=== PATIENT | male | born 1960 | race Caucasian/White ===

== ENCOUNTER 2019-11-20 13:34 | Emergency (ER) | payer BC, SELFPAY ==
[2019-11-20 13:46] VITALS: BP 151/81; PULSE 73; RESP 16; TEMP 37.8; O2SAT 99
--- NOTE | 2019-11-20 14:14 | ED.URI ---
HPI - URI/Sore Throat General Chief Complaint: Upper Respiratory Infection Stated Complaint: Sore throat Time Seen by Provider: 11/20/19 14:03 Source: patient and RN notes reviewed Mode of arrival: ambulatory Limitations: no limitations History of Present Illness HPI Narrative: Patient presents today complaining of 4-day history of severe sore throat, nasal congestion, and mild cough. Denies known fever, headache, nausea, vomiting, ear food. He currently rates his pain 7/10, which increases to 10/10 with swallowing. He has been using salt water and ibuprofen with mild relief. Reports multiple sick contacts with his grandchildren, but none with any specific diagnosed illness. He is a non-smoker. No recent antibiotic use. MD elicited complaint: sore throat Related Data Home Medications Medication Instructions Recorded Confirmed amlodipine 5 mg PO DAILY 11/20/19 11/20/19 hydrochlorothiazide 25 mg PO DAILY 11/20/19 11/20/19 Allergies Allergy/AdvReac Type Severity Reaction Status Date / Time No Known Allergies Allergy Verified 11/20/19 14:00 Review of Systems Review of Systems: Narrative: CONSTITUTIONAL: Denies body aches, fever, chills, or sweats. EYES: Denies visual changes, redness, or discharge. ENT: Denies rhinorrhea, or otalgia.+ Sore throat, congestion CARDIOVASCULAR: Denies chest pain, palpitations, or edema. RESPIRATORY: Denies dyspnea.+ Mild cough GASTROINTESTINAL: Denies abdominal pain, nausea, vomiting, or diarrhea. GENITOURINARY: Denies dysuria or hematuria. SKIN: Denies rash, itching, or wounds. MUSCULOSKELETAL: Denies back pain, joint pain, or myalgia. NEUROLOGIC: Denies headache, numbness, tingling, or weakness. PSYCH: Denies depression or anxiety. PMFSH Comments At time of signature, I have reviewed and agree with nursing past medical, surgical, social and family history unless otherwise noted. Please see nursing chart for further information. There is no relevant family history pertinent to the presenting complaint Exam Narrative: Exam Narrative: GENERAL: Mildly ill-appearing, well-nourished, and in no acute distress. HEAD: Normocephalic, atraumatic. EYES: EOMI. No redness or drainage. Conjunctivae normal. ENT: Mucous membranes pink and moist. Nares clear. No rhinorrhea. TMs normal bilaterally. Throat severely erythematous with mild edema. No exudate. Uvula midline. NECK: Normal AROM. Supple. Bilateral anterior cervical chain lymphadenopathy. CHEST: No respiratory distress. Clear to auscultation. HEART: Regular rate and rhythm. No murmur appreciated. Normal peripheral pulses. EXTREMITIES: Normal range of motion. No edema. SKIN: Warm, dry, no rash. NEURO: No focal deficits. Alert and oriented x3. Gait steady. PSYCH: Normal affect. No signs of depression or anxiety. Course Vital Signs Vital signs: Vital Signs Temperature 100.0 F H 11/20/19 13:46 Pulse Rate 73 11/20/19 13:46 Respiratory Rate 16 11/20/19 13:46 Blood Pressure 151/81 H 11/20/19 13:46 Pulse Oximetry 99 11/20/19 13:46 Temperature 100.0 F H 11/20/19 13:46 Pulse Rate 73 11/20/19 13:46 Respiratory Rate 16 11/20/19 13:46 Blood Pressure 151/81 H 11/20/19 13:46 Pulse Oximetry 99 11/20/19 13:46 Reviewed. Pt has been instructed to follow up with his PCP regarding his elevated blood pressure today. MDM - URI/Sore Throat Differential Diagnosis Differential diagnosis: Likely upper respiratory infection, otitis media, sinusitis, viral infection, pharyngitis and other (Strep throat) Lab Data Attestation: I reviewed the patient's lab results. Lab results narrative: Rapid strep positive Critical Care Time Critical Care Time Critical Care Time: No Discharge Plan Discharge Clinical Impression: Strep throat Patient Disposition: Home, Self-Care Condition: Stable Instructions: Strep Throat (DC) Additional Instructions: Your rapid strep screen is positive today. Please take the mahi
== END 2019-11-20 14:19 | disposition home or self-care (01) ==
PROVIDERS: Emergency Provider Nurse Practitioner
DX: J02.0 Streptococcal pharyngitis (principal); I10 Essential (primary) hypertension
CPT/HCPCS: 87880; 99203; G0463

== ENCOUNTER 2022-06-28 15:23 | Emergency (ER) | payer BC, SELFPAY ==
[2022-06-28 15:28] VITALS: BP 138/80; PULSE 56; RESP 20; TEMP 36.9; O2SAT 99
--- NOTE | 2022-06-28 15:36 | ED.EAR ---
HPI - Ear Problem General Chief complaint: Ear Stated complaint: ear pain Time Seen by Provider: 06/28/22 15:36 Source: patient and RN notes reviewed History of Present Illness HPI Narrative: Patient is a 62-year-old male who presents the urgent care with complaints of left ear pain that started yesterday. Patient states that he had some pain a couple weeks ago and it seemed to improve on its own. Patient states that the pain is worsened today. Denies any use of [id number] medication for his pain the patient has been sticking Q-tips in his ears. No other acute complaints. No acute distress noted. Patient aware of the plan of care. Some parts of this dictation were generated by voice recognition software and may contain typographical and/or grammatical inaccuracies. Related Data Home Medications Medication Instructions Recorded Confirmed amlodipine 5 mg tablet 5 mg PO DAILY 11/20/19 06/28/22 hydrochlorothiazide 25 mg tablet 25 mg PO DAILY 11/20/19 06/28/22 olmesartan 40 mg tablet 40 mg PO DAILY 06/28/22 06/28/22 Allergies Allergy/AdvReac Type Severity Reaction Status Date / Time No Known Allergies Allergy Verified 06/28/22 15:47 Review of Systems Review of Systems: CONSTITUTIONAL: Denies fever, chills, or sweats. EYES: Denies visual changes, redness, or discharge. ENT: Denies rhinorrhea, congestion, sore throat. Reports of left otalgia CARDIOVASCULAR: Denies chest pain, palpitations, or edema. RESPIRATORY: Denies cough or dyspnea. GASTROINTESTINAL: Denies abdominal pain, nausea, vomiting, or diarrhea. GENITOURINARY: Denies dysuria or hematuria. SKIN: Denies rash or itching. MUSCULOSKELETAL: Denies back pain, joint pain, or myalgia. NEUROLOGIC: Denies headache, numbness, or weakness. All other systems reviewed are negative, except as documented in HPI. PMFSH Comments At the time of my signature, I reviewed and agree with the nursing past medical, surgical, social, and family history. There is no relevant family history pertinent to the patient complaint. Exam Narrative: GENERAL: This is a well-nourished, well-developed patient, in no apparent distress. HEAD: normocephalic, atraumatic. EYES: PERRL. Sclera clear/white. Vision is grossly intact. EARS: External ears normal, auditory canals clear and without drainage, mild bulging to the left TM with surrounding erythema and effusion. Right TM normal without perforation. Hearing grossly intact. NOSE: External nose normal with no obvious nasal discharge, nares without redness, no rhinorrhea. THROAT: Mucous membranes moist NECK: Neck supple SKIN: warm, intact with no suspicious lesions or rash, good texture and turgor. NEURO: awake, alert, and oriented to person, place and time. There were no obvious focal neurologic abnormalities. EXTREMITIES: No clubbing, cyanosis, or edema. Course Course Level of Care: Express Care Visit Vital Signs Vital signs: Vital Signs Temperature 98.4 F 06/28/22 15:28 Pulse Rate 56 L 06/28/22 15:28 Respiratory Rate 20 06/28/22 15:28 Blood Pressure 138/80 06/28/22 15:28 Pulse Oximetry 99 06/28/22 15:28 Oxygen Delivery Room Air 06/28/22 15:28 Temperature 98.4 F 06/28/22 15:28 Pulse Rate 56 L 06/28/22 15:28 Respiratory Rate 20 06/28/22 15:28 Blood Pressure 138/80 06/28/22 15:28 Pulse Oximetry 99 06/28/22 15:28 Oxygen Delivery Room Air 06/28/22 15:28 Reviewed Medical Decision Making MDM Narrative Medical decision making narrative: Advised patient to complete the oral antibiotic regimen as prescribed. Use a daily antihistamine such as Claritin or Zyrtec and use Benadryl prior to bedtime. Be sure to eat and drink with the medication. Stop putting Q-tips in your ears and do not use any [id number]-[id number] drops. May use a warm compress to the ear for comfort. Follow-up with your PCP within 2 to 5 days or for worsening symptoms or failure to improve. Differential Diagnosis Differential Diagn
== END 2022-06-28 15:55 | disposition home or self-care (01) ==
PROVIDERS: Emergency Provider Nurse Practitioner Family
DX: H66.92 Otitis media, unspecified, left ear (principal); I10 Essential (primary) hypertension
CPT/HCPCS: 99213; G0463

== ENCOUNTER 2022-07-18 12:33 | Emergency (ER) | payer BC, SELFPAY ==
--- NOTE | 2022-07-18 12:36 | ED.EAR ---
HPI - Ear Problem General Chief complaint: Ear Stated complaint: Ear pain Time Seen by Provider: 07/18/22 12:36 Source: patient and RN notes reviewed History of Present Illness HPI Narrative: Patient is 62-year-old male who presents the urgent care with complaints of left ear pain. Patient was seen at our facility approximately 1 month ago for right ear pain and finished the amoxicillin. 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 Patient states this started approximately 2 to 3 days ago. Patient has stayed on the decongestant. Denies of any fevers or other upper respiratory complaints. No other acute complaints. No acute distress noted. Patient aware of the plan of care. Some parts of this dictation were generated by voice recognition software and may contain typographical and/or grammatical inaccuracies. Related Data Home Medications Medication Instructions Recorded Confirmed amlodipine 5 mg tablet 5 mg PO DAILY 11/20/19 07/18/22 hydrochlorothiazide 25 mg tablet 25 mg PO DAILY 11/20/19 07/18/22 olmesartan 40 mg tablet 40 mg PO DAILY 06/28/22 07/18/22 Allergies Allergy/AdvReac Type Severity Reaction Status Date / Time No Known Allergies Allergy Verified 07/18/22 12:37 Review of Systems Review of Systems: CONSTITUTIONAL: Denies fever, chills, or sweats. EYES: Denies visual changes, redness, or discharge. ENT: Denies rhinorrhea, congestion, sore throat. Reports of left otalgia CARDIOVASCULAR: Denies chest pain, palpitations, or edema. RESPIRATORY: Denies cough or dyspnea. GASTROINTESTINAL: Denies abdominal pain, nausea, vomiting, or diarrhea. GENITOURINARY: Denies dysuria or hematuria. SKIN: Denies rash or itching. MUSCULOSKELETAL: Denies back pain, joint pain, or myalgia. NEUROLOGIC: Denies headache, numbness, or weakness. All other systems reviewed are negative, except as documented in HPI. PMFSH Comments At the time of my signature, I reviewed and agree with the nursing past medical, surgical, social, and family history. There is no relevant family history pertinent to the patient complaint. Exam Narrative: GENERAL: This is a well-nourished, well-developed patient, in no apparent distress. HEAD: normocephalic, atraumatic. EYES: PERRL. Sclera clear/white. Vision is grossly intact. EARS: External ears normal, scant drainage to the right auditory canal with mild edema and erythema. Left auditory canals clear and without drainage. Mild injection with erythema to the left TM. Perforation to the right with mild erythema. Hearing grossly intact. NOSE: External nose normal with no obvious nasal discharge, nares without redness, no rhinorrhea. THROAT: Mucous membranes moist NECK: Neck supple SKIN: warm, intact with no suspicious lesions or rash, good texture and turgor. NEURO: awake, alert, and oriented to person, place and time. There were no obvious focal neurologic abnormalities. EXTREMITIES: No clubbing, cyanosis, or edema. Course Course Level of Care: Express Care Visit Vital Signs Vital signs: Vital Signs Temperature 99 F 07/18/22 12:40 Pulse Rate 61 07/18/22 12:40 Respiratory Rate 20 07/18/22 12:40 Blood Pressure 131/77 07/18/22 12:40 Pulse Oximetry 97 07/18/22 12:40 Oxygen Delivery Room Air 07/18/22 12:40 Temperature 99 F 07/18/22 12:40 Pulse Rate 61 07/18/22 12:40 Respiratory Rate 20 07/18/22 12:40 Blood Pressure 131/77 07/18/22 12:40 Pulse Oximetry 97 07/18/22 12:40 Oxygen Delivery Room Air 07/18/22 12:40 Reviewed Medical Decision Making MDM Narrative Medical decision making narrative: Advised patient to complete the oral antibiotic regimen as prescribed. Be sure to eat and drink with the medication. Use the eardrops to the left ear as directed. Use a warm compress for comfort. Continue Tylenol/ibuprofen as needed and stay on a daily antihistamine such as Claritin or Zyrtec. Do not put anythin
[2022-07-18 12:40] VITALS: BP 131/77; PULSE 61; RESP 20; TEMP 37.2; O2SAT 97
== END 2022-07-18 12:55 | disposition home or self-care (01) ==
PROVIDERS: Emergency Provider Nurse Practitioner Family
DX: H60.502 Unspecified acute noninfective otitis externa, left ear (principal); H66.93 Otitis media, unspecified, bilateral; I10 Essential (primary) hypertension
CPT/HCPCS: 99213; G0463

== ENCOUNTER 2023-04-12 19:01 | Emergency (ER) | payer BC, SELFPAY ==
[2023-04-12 19:06] VITALS: BP 134/78; PULSE 57; RESP 20; TEMP 36.6; O2SAT 97
--- NOTE | 2023-04-12 19:11 | ED.EAR ---
HPI - Ear Problem General Chief complaint: Ear Stated complaint: Left Ear Pain History of Present Illness HPI Narrative: patient presents with left ear pain no drainage from ear no hearing loss has not taken anything OTC for symptoms Related Data Home Medications Medication Instructions Recorded Confirmed amlodipine 5 mg tablet 5 mg PO DAILY 11/20/19 04/12/23 hydrochlorothiazide 25 mg tablet 25 mg PO DAILY 11/20/19 04/12/23 olmesartan 40 mg tablet 40 mg PO DAILY 06/28/22 04/12/23 fluticasone propionate 50 2 spray intranasal BID 04/12/23 04/12/23 mcg/actuation nasal spray,suspension Allergies Allergy/AdvReac Type Severity Reaction Status Date / Time No Known Allergies Allergy Verified 07/18/22 12:37 Review of Systems Review of Systems: CONSTITUTIONAL: Denies fever, chills, or sweats. EYES: Denies visual changes, redness, or discharge. ENT: Denies rhinorrhea, congestion, sore throat, or otalgia. CARDIOVASCULAR: Denies chest pain, palpitations, or edema. RESPIRATORY: Denies cough or dyspnea. GASTROINTESTINAL: Denies abdominal pain, nausea, vomiting, or diarrhea. GENITOURINARY: Denies dysuria or hematuria. SKIN: Denies rash or itching. MUSCULOSKELETAL: Denies back pain, joint pain, or myalgia. NEUROLOGIC: Denies headache, numbness, or weakness. PSYCHIATRIC: Denies anxiety or depression. PMFSH Comments At time of signature, agree with nursing past medical, surgical, social and family history. There is no relevant family history pertinent to the presenting complaint Exam Narrative: GENERAL: Well-appearing, well-nourished, and in no acute distress. HEAD: Normocephalic, atraumatic. EYES: PERRLA and EOMI. ENT: Nares clear, no rhinorrhea or epistaxis. Mucous membranes moist. Right TM intact good light reflex left TM bulging with moderate erythema to canal NECK: Supple. CHEST: Clear to auscultation. No respiratory distress. HEART: Regular rate and rhythm. No murmur heard. Normal peripheral pulses. ABDOMEN: Soft, nontender, nondistended, normal active bowel sounds. EXTREMITIES: Normal range of motion. No edema. SKIN: Warm, dry, no rash. NEURO: No focal deficits. Alert and oriented x3. Roosevelt Coma Scale Eye Opening: Spontaneous 4 Roosevelt Coma Scale Motor: Obeys Commands 6 Kody Coma Scale Verbal: Oriented 5 Kody Coma Scale Total 15 Course Course Level of Care: Express Care Visit Vital Signs Vital signs: Vital Signs Temperature 36.6 C 04/12/23 19:06 Pulse Rate 57 L 04/12/23 19:06 Respiratory Rate 20 04/12/23 19:06 Blood Pressure 134/78 04/12/23 19:06 Pulse Oximetry 97 04/12/23 19:06 Oxygen Delivery Room Air 04/12/23 19:06 Temperature 36.6 C 04/12/23 19:06 Pulse Rate 57 L 04/12/23 19:06 Respiratory Rate 20 04/12/23 19:06 Blood Pressure 134/78 04/12/23 19:06 Pulse Oximetry 97 04/12/23 19:06 Oxygen Delivery Room Air 04/12/23 19:06 Medical Decision Making Vital Signs Vital Signs: Vital Signs Temperature 36.6 C 04/12/23 19:06 Pulse Rate 57 L 04/12/23 19:06 Respiratory Rate 20 04/12/23 19:06 Blood Pressure 134/78 04/12/23 19:06 Pulse Oximetry 97 04/12/23 19:06 Oxygen Delivery Room Air 04/12/23 19:06 Temperature 36.6 C 04/12/23 19:06 Pulse Rate 57 L 04/12/23 19:06 Respiratory Rate 20 04/12/23 19:06 Blood Pressure 134/78 04/12/23 19:06 Pulse Oximetry 97 04/12/23 19:06 Oxygen Delivery Room Air 04/12/23 19:06 Discharge Plan Discharge Clinical Impression: Otitis media Patient Disposition: Home, Self-Care Condition: Stable Instructions: Antibiotic Form, Ear Infection (AC) Additional Instructions: medication as prescribed until gone follow up with PCP as needed if any new or worsening of symptoms go to er immediately Prescriptions: New amoxicillin-pot clavulanate 875-125 mg tablet 1 tablet PO Q12H 7 Days Qty: 14 0RF No Action olmesartan 40 mg tablet 40 mg PO
== END 2023-04-12 19:15 | disposition home or self-care (01) ==
PROVIDERS: Emergency Provider Nurse Practitioner Family
DX: H66.92 Otitis media, unspecified, left ear (principal)
CPT/HCPCS: 99213; G0463

== ENCOUNTER 2023-11-25 10:02 | Emergency (ER) | payer BC, SELFPAY ==
[2023-11-25 10:30] VITALS: BP 149/79; PULSE 73; RESP 16; TEMP 37.7; O2SAT 100
--- NOTE | 2023-11-25 11:11 | ED.URI ---
HPI - URI/Sore Throat General Chief Complaint: Upper Respiratory Infection Stated Complaint: Sore Throat/Cough Time Seen by Provider: 11/25/23 11:04 Source: patient and RN notes reviewed Mode of arrival: ambulatory Limitations: no limitations History of Present Illness HPI Narrative: Patient presents today complaining of cough, rhinorrhea, watery eyes, fatigue since last night. He tried some NyQuil, which did provide some relief. Denies any additional symptoms. Related Data Home Medications Medication Instructions Recorded Confirmed amlodipine 5 mg tablet 5 mg PO DAILY 11/20/19 04/12/23 hydrochlorothiazide 25 mg tablet 25 mg PO DAILY 11/20/19 04/12/23 olmesartan 40 mg tablet 40 mg PO DAILY 06/28/22 04/12/23 fluticasone propionate 50 2 spray intranasal BID 04/12/23 04/12/23 mcg/actuation nasal spray,suspension Adults Multivitamin 11/25/23 Allergies Allergy/AdvReac Type Severity Reaction Status Date / Time No Known Allergies Allergy Verified 11/25/23 10:26 Review of Systems Review of Systems: CONSTITUTIONAL: Denies body aches, fever, chills, or sweats.+ fatigue EYES: Denies visual changes, redness, or discharge.+ watery eyes ENT: Denies congestion, sore throat, or otalgia.+ rhinorrhea CARDIOVASCULAR: Denies chest pain, palpitations, or edema. RESPIRATORY: Denies dyspnea.+ cough GASTROINTESTINAL: Denies abdominal pain, nausea, vomiting, or diarrhea. GENITOURINARY: Denies dysuria or hematuria. SKIN: Denies rash, itching, or wounds. MUSCULOSKELETAL: Denies back pain, joint pain, or myalgia. NEUROLOGIC: Denies headache, numbness, tingling, or weakness. PSYCH: Denies depression or anxiety. [facility] Past Medical History Medical History (Updated 11/25/23 @ 11:15 by Karen Hart, ENT PHYSICIAN, ) Hypertension Comments At time of signature, I have reviewed and agree with nursing past medical, surgical, social and family history unless otherwise noted. Please see nursing chart for further information. There is no relevant family history pertinent to the presenting complaint Exam Narrative: GENERAL: Well-appearing, well-nourished, and in no acute distress. HEAD: Normocephalic, atraumatic. EYES: EOMI. PERRL. No redness or drainage. Conjunctivae normal. ENT: Mucous membranes pink and moist. Nares clear. No rhinorrhea. TMs normal bilaterally. Throat normal. Uvula midline. NECK: Normal AROM. Supple. No lymphadenopathy. CHEST: No respiratory distress. Clear to auscultation. HEART: Regular rate and rhythm. No murmur appreciated. EXTREMITIES: Normal range of motion. No edema. SKIN: Warm, dry, no rash. Capillary refill normal. Normal skin turgor. NEURO: No focal deficits. Alert and oriented x3. Gait steady. PSYCH: Normal affect. No signs of depression or anxiety. Course Course Level of Care: Express Care Visit Vital Signs Vital signs: Vital Signs Temperature 99.9 F H 11/25/23 10:30 Pulse Rate 73 11/25/23 10:30 Respiratory Rate 16 11/25/23 10:30 Blood Pressure 149/79 H 11/25/23 10:30 Pulse Oximetry 100 11/25/23 10:30 Oxygen Delivery Room Air 11/25/23 10:30 Temperature 99.9 F H 11/25/23 10:30 Pulse Rate 73 11/25/23 10:30 Respiratory Rate 16 11/25/23 10:30 Blood Pressure 149/79 H 11/25/23 10:30 Pulse Oximetry 100 11/25/23 10:30 Oxygen Delivery Room Air 11/25/23 10:30 Reviewed MDM - URI/Sore Throat MDM Narrative Medical decision making narrative: All testing negative. Strep culture pending. Symptoms likely viral. Discussed [id number] medication use induration of illness. No prescription medications indicated at this time. Anticipatory guidance given. Differential Diagnosis Differential diagnosis: Likely upper respiratory infection, viral infection, influenza and other (COVID-19) Lab Data Attestation: I reviewed the patient's lab results. Labs: Lab Results 11/25/23 Range/Units 10:40 POC SARS CoV-2 Ag Negative (Negative)
== END 2023-11-25 11:20 | disposition home or self-care (01) ==
PROVIDERS: Emergency Provider Nurse Practitioner; PCP Hospitalist
DX: B34.9 Viral infection, unspecified (principal); I10 Essential (primary) hypertension; Z20.822 Contact with and (suspected) exposure to COVID-19
CPT/HCPCS: 87081; 87426; 87804; 87880; 99213; G0463